=== PATIENT | male | born 1980 | race Caucasian/White ===

== ENCOUNTER 2017-07-22 15:17 | Emergency (ER) | payer MEDICAID ==
[~2017-07-22] VITALS: Ht 175.3 cm; Wt 77.0 kg
[2017-07-22] MEDS ORDERED: IBUPROFEN 600MG TABLET PO ONE (20:45)
[2017-07-22] MEDS ORDERED: AZITHROMYCIN 500 MG TABLET PO ONE (22:00)
[2017-07-22] MEDS ORDERED: CEFTRIAXONE SODIUM 250 MG/VIAL IM ONE (22:00)
[2017-07-22] MEDS ORDERED: LIDOCAINE HCL 1% 20ML VIAL (Pyxis) INJ INFIL ONE (22:00)
[2017-07-22 23:39] VITALS: BP 128/77
== END 2017-07-22 23:40 | disposition home or self-care (01) ==
LOC: ER 15:42
DX: N50.819 Testicular pain, unspecified (principal); Z20.2 Contact with and (suspected) exposure to infections with a predominantly sexual mode of transmission; N50.89 Other specified disorders of the male genital organs; F15.10 Other stimulant abuse, uncomplicated; F14.10 Cocaine abuse, uncomplicated; R03.0 Elevated blood-pressure reading, without diagnosis of hypertension; R59.0 Localized enlarged lymph nodes
CPT/HCPCS: 76870; 93976; 96372; 99285; J0696; J3490